=== PATIENT | male | born 1985 | race Caucasian/White ===

== ENCOUNTER 2020-10-11 14:05 | Emergency (ER) | payer SELFPAY ==
[~2020-10-11] VITALS: Ht 180.3 cm; Wt 102.1 kg
[2020-10-11 15:43] LABS: BASO # 0.1 10*3/uL (0.0-0.1); BASO % 1.2 % (0.0-1.0); EOS # 0.1 10*3/uL (0.0-0.4); EOS % 2.3 % (1.0-4.0); HEMATOCRIT 47.8 % (42.0-52.0); LYMPH % 33.5 % (27.0-41.0); MEAN CELL VOLUME 88.2 fl (80.0-94.0); MEAN CORPUSCULAR HGB 30.8 pg (27.0-31.0); MEAN CORPUSCULAR HGB CONC 34.9 g/dl (33.0-37.0); MEAN PLATELET VOLUME 9.5 fl (9.6-12.3); MONO # 0.6 10*3/uL (0.1-1.0); MONO % 10.3 % (3.0-9.0); NEUT # 3.1 10*3/uL (2.3-7.9); NEUT % 52.4 % (47.0-73.0); PLATELET COUNT AUTOMATED 214 10*3/uL (130-400); RED BLOOD COUNT 5.42 10*6/uL (4.50-5.90); RED CELL DISTRI WIDTH 13.5 % (0-14.5)
[2020-10-11 16:11] LABS: ALBUMIN 4.3 gm/dl (3.1-4.5); BUN 15 mg/dl (7-24); CHLORIDE 101 mmol/L (98-107); CREATININE 0.77 mg/dL (0.70-1.30); POTASSIUM 3.7 mmol/L (3.5-5.1); SGOT/AST 84 IU/L (3-35); SGPT/ALT 185 U/L (12-78); SODIUM 136 mmol/L (136-145)
[2020-10-11 16:14] LABS: ALKALINE PHOSPHATASE 96 U/L (45-117); TROPONIN I < 0.015 ng/ml (<0.045)
[2020-10-11] MEDS ORDERED: ZESTRIL10 MG PO (16:50)
== END 2020-10-11 17:04 | disposition home or self-care (01) ==
LOC: ED 14:05
PROVIDERS: Family Medicine
DX: I10 Essential (primary) hypertension (principal); R74.01 Elevation of levels of liver transaminase levels; Z87.891 Personal history of nicotine dependence